=== PATIENT | female | born 1990 | race Caucasian/White ===

== ENCOUNTER → 2017-06-29 | Outpatient (CLI) | payer OTHER ==
[~2017-06-29] MED LIST: FLEXERIL PO; HAIR, SKIN & N1 EAC3 PO; HYDROCODONE-AP1 EAC6 PO; LEVOTHYROXINE200 MC1 PO; MAXALT10 MG PO; OMEPRAZOLE40 MG PO; ONDANSETRON HCL4 M2 PO; PROAIR HFA8.5 GM INH; TRAZODONE HCL50 MG PO; ZOLOFT50 MG PO
== END ==
LOC: CAT 09:05
DX: R10.31 Right lower quadrant pain (principal)

== ENCOUNTER 2017-07-03 05:27 | Observation (INO) | payer OTHER ==
[~2017-07-03] VITALS: Ht 172.7 cm; Wt 116.6 kg
[~2017-07-03 05:27] MED LIST changes: -HYDROCODONE-AP1 EAC6 PO; -ONDANSETRON HCL4 M2 PO
[2017-07-03 07:10] VITALS: BP 132/76
[2017-07-03 08:02] LABS: HEMATOCRIT 40.9 % (37.0-47.0); HEMOGLOBIN 13.9 gm/dL (12.0-15.0)
[2017-07-03] MEDS ORDERED: ONDANSETRON HCL4 M2 PO (09:45)
[2017-07-03] MEDS ORDERED: HYDROCODONE-AP1 EAC6 PO (09:45)
[2017-07-03 16:30] VITALS: BP 117/74
[2017-07-03 17:24] VITALS: BP 117/74
== END 2017-07-03 19:45 | disposition home or self-care (01) ==
LOC: OR 05:27 → TBA 05:27 → OR 10:41 → 4E 10:41 → OR 14:11 → 4E 19:45
PROVIDERS: Surgery
DX: K38.1 Appendicular concretions (principal); R10.31 Right lower quadrant pain; E03.9 Hypothyroidism, unspecified; K21.9 Gastro-esophageal reflux disease without esophagitis; F41.9 Anxiety disorder, unspecified; G47.00 Insomnia, unspecified; E78.5 Hyperlipidemia, unspecified; E28.2 Polycystic ovarian syndrome; J45.909 Unspecified asthma, uncomplicated; F17.210 Nicotine dependence, cigarettes, uncomplicated; Z72.89 Other problems related to lifestyle
CPT/HCPCS: 50010; 50101; 50249; 50411; 50555; 50558; 50740; 50962; 51975; 52265; 53307; 53310; 54022; 54118; 56462; 56525; 56526; 62110; 62900; 70005

== ENCOUNTER → 2017-08-12 | Outpatient (CLI) | payer OTHER ==
[~2017-08-12] VITALS: Ht 172.7 cm; Wt 116.6 kg
[~2017-08-12] MED LIST changes: +BUSPIRONE HCL15 MG PO; +CYMBALTA20 MG PO; +HYDROCODONE-AP1 EAC6 PO; +ONDANSETRON HCL4 M2 PO; +PHENERGAN 25 MG25 M1 PO
--- NOTE | ~2017-08-12 | PATH ---
[facility] [place] [address] PATHOLOGY RPT PROCEDURE Name: LUIS ALBERTO SWAN Room #: REG LUI Ye.#: [id number] Admission: 08/12/17 Date of : 86 Discharge: Report #: [id number] Path Case #: [id number] [facility] Accession Number: [id number] . 01 Material submitted: . PART A: POLYP AT 35 CM PART B: POLYP AT 30 CM . 01 Clinical history: . Pre-op DX: Rectal bleeding Post-op DX: Colon polyps . 02 Diagnosis: A. Polyp, at 35 cm, endoscopic biopsy: - Compatible with an inflammatory polyp. - Negative for dysplasia. . B. Polyp, at 30 cm, endoscopic biopsy: - Tubular adenoma. - Negative for high grade dysplasia. - Unremarkable mucosa present at inked margin. (IUV:db; 08/14/2017) LBQ/08/14/2017 . 02 Electronically signed: . Harleen Martins MD, Pathologist NPI- [id number] . 01 Gross description: . A. Received in formalin labeled "Luis Alberto Swan, polyp at 35 cm," and additionally labeled on requisition as, "colon polyps," is a polypoid segment of dark brown soft tissue measuring 0.9 x 0.7 x 0.7 cm in greatest dimensions. The surgical margin is inked, and the specimen is trisected and submitted entirely in cassette A1. . B. Received in formalin labeled "Luis Alberto Swan, polyp at 30 cm," and additionally labeled on the requisition as, "colon polyps," is a polypoid segment of light brown soft tissue measuring 0.5 x 0.4 x 0.4 cm in greatest dimensions. The surgical margin is inked, and the specimen is bisected and submitted entirely in cassette B1. (DAC; 08/13/2017) XDC/XDC . 02 Microscopic: . . . 02 Pathologist provided ICD-10: [address] [address] PATHOLOGY RPT PROCEDURE Name: LUIS ALBERTO SWAN Room #: REG [facility].#: [id number] Admission: 08/12/17 Date of : 86 Discharge: Report #: [id number] Path Case #: [id number] K51.40, D12.6 . 02 CPT . 506052, [id number] Performed at: [address] [place] [address], [place] [id number] MD Star Byers MD Phone: [phone] Performed at: [address] [id number] MD Harleen Martins MD Phone: [phone]
--- NOTE | ~2017-08-12 | P ---
[facility] [place] [address] PROCEDURE REPORT Name: LUIS ALBERTO SWAN Room #: REG [facility] Cassi.#: [id number] Admission: 08/12/17 Attend Phys: Ilsa Knowles DO Discharge: Date of : 86 Report #: [id number] THIS REPORT FOR: //name// CC: Ilsa Knowles FAM unknown Leo Taveras DO DATE OF SERVICE: 08/12/2017 PROCEDURE: Colonoscopy with snare polypectomies. PATIENT OF: Leo Gonzalez DO INDICATION FOR PROCEDURE: This patient had hematochezia with periumbilical abdominal pain of uncertain etiology. Colonoscopy is being performed today to evaluate for sources of these symptoms. Informed consent for this procedure was obtained prior to the administration of any medication. The risks of the procedure which include bleeding, perforation, infection, complications of sedation and the possibility I could miss something have been explained to the patient and she has indicated her consent by signing. Propofol was slowly titrated before and during this procedure for patient comfort by the anesthesia service. Digital rectal exam did not reveal any abnormalities. The [employer] colonoscope was introduced through the anal sphincter and advanced under direct visualization to the terminal ileum. Findings are noted on withdrawal of the scope. The terminal ileum mucosa appears normal. Cecum, normal mucosa. Ascending colon, normal mucosa. Hepatic flexure, normal mucosa. Transverse colon, normal mucosa. Splenic flexure, normal mucosa. Descending colon, normal mucosa. Sigmoid colon, at 35 cm in the sigmoid colon there was a 1 cm pedunculated polyp removed in toto with a hot snare and sent to pathology lab. Good hemostasis was noted after that polypectomy. At 30 cm in the colon, there was a 4 mm sessile polyp removed in toto with a hot snare and sent to pathology. Good hemostasis was noted after that polypectomy. The remaining sigmoid mucosa appears normal. Rectum, normal mucosa. Retroflex view did not reveal any abnormalities. The scope was withdrawn. The patient went to the recovery area in stable condition. She tolerated the procedure well. IMPRESSION: Two colon polyps removed as above from 30 and 35 cm. RECOMMENDATIONS: To await the path report. [address] [place] [address] PROCEDURE REPORT Name: BELEM SWANEN Room #: REG CL Wagner#: [id number] Admission: 08/12/17 Attend Phys: Ilsa Knowles DO Discharge: Date of : 86 Report #: [id number] Thank you very much once again for allowing me to participate in her care. <ELECTRONICALLY SIGNED> By: Ilsa Knwoles DO 08/14/17 [id number] Ilsa Knowles DO /nt
== END | disposition home or self-care (01) ==
LOC: GI 10:52
DX: D12.5 Benign neoplasm of sigmoid colon (principal); F17.210 Nicotine dependence, cigarettes, uncomplicated; G40.909 Epilepsy, unspecified, not intractable, without status epilepticus; F41.9 Anxiety disorder, unspecified; F32.9 Major depressive disorder, single episode, unspecified; G47.30 Sleep apnea, unspecified; D64.9 Anemia, unspecified; K21.9 Gastro-esophageal reflux disease without esophagitis; E03.9 Hypothyroidism, unspecified
CPT/HCPCS: 62110; 62900